=== PATIENT | female | born 1980 | race Caucasian/White ===

== ENCOUNTER 2023-08-08 03:58 | Emergency (ER) | payer OTHER ==
[~2023-08-08] VITALS: Ht 167.6 cm; Wt 66.0 kg
[2023-08-08 04:00] VITALS: O2SAT 96
[2023-08-08] MEDS ORDERED: P20 PO (05:20)
[2023-08-08] MEDS ORDERED: ACET-2708 MT (05:20)
[2023-08-08] MEDS: PREDNISONE 20MG TABLET PO ONE (05:44)
[2023-08-08] MEDS ORDERED: ACETAMINOPHEN 325MG TABLET PO ONE (05:45)
[2023-08-08] MEDS: ACETAMINOPHEN 325MG TABLET PO NR (06:02)
[2023-08-08 06:07] VITALS: BP 116/67; PULSE 86; RESP 18; TEMP 98.7
== END 2023-08-08 06:09 | disposition home or self-care (01) ==
LOC: ER 03:58
DX: M02.332 Reiter's disease, left wrist (principal); Z88.6 Allergy status to analgesic agent
CPT/HCPCS: 99283; 73110; J7512